=== PATIENT | female | born 1955 | race Caucasian/White ===

== ENCOUNTER 2017-04-02 12:40 | Inpatient (IN) | payer MEDICAID ==
[~2017-04-02] VITALS: Ht 160 cm; Wt 55.0 kg
[2017-04-02 13:54] LABS: BASOPHIL % 0.3 % (0-2); PLATELET COUNT 227 x10^3mcL (130-400); RED CELL DISTRIBUTION WIDTH 12.6 % (11.5-14.5)
[2017-04-02 14:14] LABS: CARBON DIOXIDE 28.4 mmol/L (21-32); CHLORIDE SERUM 109 mmol/L (98-107); GFR1 59 mL/min; GLUCOSE SERUM 98 mg/dL (74-106); SODIUM SERUM 142 mmol/L (136-145)
[2017-04-02 14:29] LABS: ALBUMIN 3.4 g/dL (3.4-5.0); ALKALINE PHOSPHATASE 135 U/L (46-116); ALT/SGPT 224 U/L (14-59); AMYLASE 115 U/L (25-115); AST/SGOT 161 U/L (15-37); BILIRUBIN TOTAL 0.41 mg/dL (0.20-1.00); CHOLESTEROL 185 mg/dL (<200); LIPASE 140 IU/L (73-393); MAGNESIUM 2.3 mg/dL (1.8-2.4); TOTAL PROTEIN, SERUM 8.2 g/dL (6.4-8.2)
[2017-04-02 14:30] LABS: HDL CHOLESTEROL 32 mg/dL (40-60); T4(THYROXINE) 14.1 ug/dL (4.7-13.3)
[2017-04-02 15:18] LABS: microscopic required? YES; urine erythrocyte 1+ (NEGATIVE)
[2017-04-02 16:32] LABS: AMPHETAMINE QUAL UR POSITIVE (NEG <=1000)
[2017-04-02 17:16] VITALS: BP 184/99
[2017-04-02 19:45] LABS: CHOLESTEROL/HDL RATIO 5.4
[2017-04-02 21:53] VITALS: BP 156/81
[2017-04-03 05:34] VITALS: BP 140/67
[2017-04-03 06:39] LABS: CALCIUM 8.4 mg/dL (8.5-10.1); CHLORIDE SERUM 110 mmol/L (98-107); CREATININE SERUM 0.8 mg/dL (0.6-1.0); GFR1 > 60 mL/min; GLUCOSE SERUM 89 mg/dL (74-106); MAGNESIUM 2.4 mg/dL (1.8-2.4); PHOSPHOROUS 3.5 mg/dL (2.5-4.9); POTASSIUM SERUM 3.8 mmol/L (3.5-5.1); SODIUM SERUM 143 mmol/L (136-145)
[2017-04-03 06:51] LABS: BASOPHIL % 0.4 % (0-2); PLATELET COUNT 192 x10^3mcL (130-400); RED CELL DISTRIBUTION WIDTH 12.8 % (11.5-14.5)
[2017-04-03 10:16] VITALS: BP 155/64
[2017-04-03 15:01] VITALS: BP 145/62
[2017-04-03 17:40] VITALS: BP 145/74
[2017-04-03 22:19] VITALS: BP 140/67
[2017-04-04 06:02] VITALS: BP 132/74
[2017-04-04 06:49] LABS: BASOPHIL % 0.4 % (0-2); PLATELET COUNT 163 x10^3mcL (130-400); RED CELL DISTRIBUTION WIDTH 12.4 % (11.5-14.5)
[2017-04-04 06:56] LABS: CALCIUM 8.5 mg/dL (8.5-10.1); CARBON DIOXIDE 23.1 mmol/L (21-32); CHLORIDE SERUM 112 mmol/L (98-107); CREATININE SERUM 0.7 mg/dL (0.6-1.0); GFR1 > 60 mL/min; GLUCOSE SERUM 95 mg/dL (74-106); MAGNESIUM 1.9 mg/dL (1.8-2.4); PHOSPHOROUS 3.4 mg/dL (2.5-4.9); POTASSIUM SERUM 3.4 mmol/L (3.5-5.1); SODIUM SERUM 140 mmol/L (136-145)
[2017-04-04 07:40] VITALS: BP 162/71
[2017-04-04 17:06] VITALS: BP 162/71
[2017-04-04] MEDS ORDERED: LEVAQUIN750 MG PO (17:06)
[2017-04-04] MEDS ORDERED: LAC PO (17:07)
[2017-04-04 17:21] VITALS: BP 173/79
[2017-04-04 17:53] VITALS: BP 194/75
[2017-04-04 18:44] VITALS: BP 135/59
== END 2017-04-04 19:13 | disposition home or self-care (01) | DRG 463 ==
LOC: ED 12:40 → MU 15:53 → DU 15:53 → MU 04-03 09:39
PROVIDERS: Emergency Medicine; Family Medicine; ADMIT Family Medicine
DX: N39.0 Urinary tract infection, site not specified (principal); N17.0 Acute kidney failure with tubular necrosis; G93.41 Metabolic encephalopathy; I16.0 Hypertensive urgency; R74.0 Nonspecific elevation of levels of transaminase and lactic acid dehydrogenase [LDH]; E83.51 Hypocalcemia; E78.5 Hyperlipidemia, unspecified; F15.10 Other stimulant abuse, uncomplicated; R26.0 Ataxic gait; Z68.21 Body mass index [BMI] 21.0-21.9, adult; F17.210 Nicotine dependence, cigarettes, uncomplicated
CPT/HCPCS: 82962; 83880; G0480; J0360; J1956; J3411; J3475; J3490; J7030; Q0092